=== PATIENT | female | born 1955 | race Caucasian/White ===

== ENCOUNTER → 2016-11-20 16:36 | Outpatient (CLI) | payer BC ==
[2016-11-16 10:46] VITALS: BMI 20.9
[~2016-11-20 16:36] MED LIST: ACYCLOVIR; ANTIDEPRESSANT PO; APAP PO; BUTALB PO; CARAFATE1 G PO; CELEXA20 MG PO; CLEOCIN HCL300 MG PO; DICLOFENAC SODI50 MG PO; FIORICET PO; FIORICET/ESGIC1 TAB PO; LEVAQUIN500 MG PO; MUCINEX600 MG PO; NIFEREX-150 CAP1 CA3 PO; NORCO 5/325 TAB1 TA1 PO; OMEPRAZOLE20 M1 PO; PRILOSEC20 MG PO; PROPRANOLOL HCL60 M1 PO; SEROQUEL200 MG PO; SINGULAIR10 MG PO; SOMA350 MG; SOMA350 MG PO; SYNTHROID; SYNTHROID25 MCG PO; TESSALON PERLE100 MG PO; XANAX0.25 MG PO; ZOVIRAX400 MG PO
[2016-11-20 17:14] LABS: BASOPHILS 0 % (0.0-2.0); HEMATOCRIT 32.7 % (36.0-48.0); HEMOGLOBIN 10.9 g/dL (12-16); IMMATURE GRANULOCYTES 0.4 % (0-5); LYMPHOCYTES 24.2 % (15-50); MCH 30.7 pg (26.0-34.0); MCHC 33.3 g/dL (31.0-37.0); MCV 92.1 fL (80.0-100.0); MEAN PLATELET VOLUME 9.9 fL (7.4-10.4); MONOCYTES 13.6 % (2-11); NEUTROPHILS 57.8 % (40-80); PLATELET COUNT 206 10x3/uL (130-400); RBC 3.55 10x6/uL (4.00-5.40); RDW 12.7 % (11.5-14.5); WBC 4.5 10x3/uL (4.8-10.8)
[2016-11-20 17:19] LABS: C-REACTIVE PROTEIN 5.9 mg/dL (0.0-0.9); CREATININE - SERUM 0.6 mg/dL (0.6-1.3)
[2016-11-20 18:19] LABS: ERYTHROCYTE SEDIMENTATION RATE 19 mm/hr (0-30)
== END | disposition home or self-care (01) ==
LOC: D.LABREF 16:36
PROVIDERS: Student in an Organized Health Care Education/Training Program
DX: Z79.2 Long term (current) use of antibiotics (principal); M86.60 Other chronic osteomyelitis, unspecified site; Z51.81 Encounter for therapeutic drug level monitoring

== ENCOUNTER → 2016-11-27 15:07 | Outpatient (CLI) | payer BC ==
[2016-11-16 10:46] VITALS: BMI 20.9
[2016-11-27 15:29] LABS: BASOPHILS 0 % (0.0-2.0); EOSINOPHILS 6.5 % (0-7); HEMATOCRIT 31.6 % (36.0-48.0); HEMOGLOBIN 10.6 g/dL (12-16); IMMATURE GRANULOCYTES 0.7 % (0-5); LYMPHOCYTES 26.4 % (15-50); MCH 30.5 pg (26.0-34.0); MCHC 33.5 g/dL (31.0-37.0); MCV 91.1 fL (80.0-100.0); MEAN PLATELET VOLUME 9.1 fL (7.4-10.4); NEUTROPHILS 56.4 % (40-80); RBC 3.47 10x6/uL (4.00-5.40); RDW 12.7 % (11.5-14.5); WBC 8.4 10x3/uL (4.8-10.8)
[2016-11-27 15:40] LABS: C-REACTIVE PROTEIN 1.4 mg/dL (0.0-0.9); CREATININE - SERUM 0.7 mg/dL (0.6-1.3)
[2016-11-27 15:47] LABS: PLATELET COUNT 421 10x3/uL (130-400)
[2016-11-27 16:31] LABS: ERYTHROCYTE SEDIMENTATION RATE 20 mm/hr (0-30)
== END | disposition home or self-care (01) ==
LOC: D.LABREF 15:07
PROVIDERS: Student in an Organized Health Care Education/Training Program
DX: M86.9 Osteomyelitis, unspecified (principal)

== ENCOUNTER → 2016-12-04 15:06 | Outpatient (CLI) | payer BC ==
[2016-11-16 10:46] VITALS: BMI 20.9
[2016-12-04 19:50] LABS: BASOPHILS 0 % (0.0-2.0); EOSINOPHILS 4.6 % (0-7); HEMATOCRIT 31.5 % (36.0-48.0); HEMOGLOBIN 10.4 g/dL (12-16); IMMATURE GRANULOCYTES 0.1 % (0-5); LYMPHOCYTES 15.7 % (15-50); MCH 30.1 pg (26.0-34.0); MCV 91.3 fL (80.0-100.0); MEAN PLATELET VOLUME 9.5 fL (7.4-10.4); MONOCYTES 9.9 % (2-11); NEUTROPHILS 69.7 % (40-80); PLATELET COUNT 379 10x3/uL (130-400); RBC 3.45 10x6/uL (4.00-5.40); RDW 12.9 % (11.5-14.5); WBC 8.4 10x3/uL (4.8-10.8)
[2016-12-04 19:56] LABS: C-REACTIVE PROTEIN 1.4 mg/dL (0.0-0.9); CREATININE - SERUM 0.7 mg/dL (0.6-1.3)
[2016-12-04 21:00] LABS: ERYTHROCYTE SEDIMENTATION RATE 16 mm/hr (0-30)
== END | disposition home or self-care (01) ==
LOC: D.LABREF 15:06
PROVIDERS: Student in an Organized Health Care Education/Training Program
DX: Z79.2 Long term (current) use of antibiotics (principal); Z51.81 Encounter for therapeutic drug level monitoring; M86.60 Other chronic osteomyelitis, unspecified site

== ENCOUNTER → 2016-12-11 15:54 | Outpatient (CLI) | payer BC ==
[2016-11-16 10:46] VITALS: BMI 20.9
[2016-12-11 16:33] LABS: BASOPHILS 0 % (0.0-2.0); EOSINOPHILS 5.3 % (0-7); HEMATOCRIT 31.9 % (36.0-48.0); HEMOGLOBIN 10.5 g/dL (12-16); IMMATURE GRANULOCYTES 0.1 % (0-5); LYMPHOCYTES 23.9 % (15-50); MCH 30.2 pg (26.0-34.0); MCHC 32.9 g/dL (31.0-37.0); MCV 91.7 fL (80.0-100.0); MEAN PLATELET VOLUME 9.4 fL (7.4-10.4); MONOCYTES 9.2 % (2-11); NEUTROPHILS 61.5 % (40-80); PLATELET COUNT 356 10x3/uL (130-400); RBC 3.48 10x6/uL (4.00-5.40); RDW 12.9 % (11.5-14.5); WBC 7.9 10x3/uL (4.8-10.8)
[2016-12-11 16:49] LABS: C-REACTIVE PROTEIN 2.1 mg/dL (0.0-0.9); CREATININE - SERUM 0.6 mg/dL (0.6-1.3)
[2016-12-11 18:17] LABS: ERYTHROCYTE SEDIMENTATION RATE 13 mm/hr (0-30)
== END | disposition home or self-care (01) ==
LOC: D.LABREF 15:54
PROVIDERS: Student in an Organized Health Care Education/Training Program
DX: M46.22 Osteomyelitis of vertebra, cervical region (principal)

== ENCOUNTER → 2016-12-18 16:44 | Outpatient (CLI) | payer BC ==
[2016-11-16 10:46] VITALS: BMI 20.9
[2016-12-18 17:48] LABS: BASOPHILS 0.1 % (0.0-2.0); EOSINOPHILS 6.5 % (0-7); HEMATOCRIT 33.5 % (36.0-48.0); HEMOGLOBIN 11.1 g/dL (12-16); IMMATURE GRANULOCYTES 0.3 % (0-5); LYMPHOCYTES 23.5 % (15-50); MCH 30.1 pg (26.0-34.0); MCHC 33.1 g/dL (31.0-37.0); MCV 90.8 fL (80.0-100.0); MEAN PLATELET VOLUME 9.5 fL (7.4-10.4); NEUTROPHILS 51.6 % (40-80); PLATELET COUNT 399 10x3/uL (130-400); RBC 3.69 10x6/uL (4.00-5.40); RDW 12.7 % (11.5-14.5); WBC 7.9 10x3/uL (4.8-10.8)
[2016-12-18 18:12] LABS: C-REACTIVE PROTEIN 0.3 mg/dL (0.0-0.9); CREATININE - SERUM 0.6 mg/dL (0.6-1.3)
[2016-12-18 18:57] LABS: ERYTHROCYTE SEDIMENTATION RATE 10 mm/hr (0-30)
== END | disposition home or self-care (01) ==
LOC: D.LABREF 16:44
PROVIDERS: Student in an Organized Health Care Education/Training Program
DX: Z51.81 Encounter for therapeutic drug level monitoring (principal); Z79.2 Long term (current) use of antibiotics; M86.9 Osteomyelitis, unspecified

== ENCOUNTER → 2016-12-25 14:20 | Outpatient (CLI) | payer BC ==
[2016-11-16 10:46] VITALS: BMI 20.9
[2016-12-25 14:32] LABS: BASOPHILS 0.1 % (0.0-2.0); EOSINOPHILS 7.2 % (0-7); HEMATOCRIT 32.1 % (36.0-48.0); HEMOGLOBIN 10.4 g/dL (12-16); IMMATURE GRANULOCYTES 0.2 % (0-5); LYMPHOCYTES 23.2 % (15-50); MCH 29.5 pg (26.0-34.0); MCHC 32.4 g/dL (31.0-37.0); MCV 91.2 fL (80.0-100.0); MEAN PLATELET VOLUME 9.4 fL (7.4-10.4); MONOCYTES 9.9 % (2-11); NEUTROPHILS 59.4 % (40-80); PLATELET COUNT 386 10x3/uL (130-400); RBC 3.52 10x6/uL (4.00-5.40); RDW 12.9 % (11.5-14.5); WBC 8.5 10x3/uL (4.8-10.8)
[2016-12-25 14:49] LABS: C-REACTIVE PROTEIN < 0.2 mg/dL (0.0-0.9); CREATININE - SERUM 0.7 mg/dL (0.6-1.3); UREA NITROGEN 14 mg/dL (7-18)
[2016-12-25 15:46] LABS: ERYTHROCYTE SEDIMENTATION RATE 8 mm/hr (0-30)
== END | disposition home or self-care (01) ==
LOC: D.LABREF 14:20
PROVIDERS: Student in an Organized Health Care Education/Training Program
DX: Z51.81 Encounter for therapeutic drug level monitoring (principal); Z79.2 Long term (current) use of antibiotics

== ENCOUNTER → 2017-03-06 12:53 | Outpatient (CLI) | payer BC ==
[2016-11-16 10:46] VITALS: BMI 20.9
== END | disposition home or self-care (01) ==
LOC: D.MRI 02-26 11:00
DX: M86.60 Other chronic osteomyelitis, unspecified site (principal)

== ENCOUNTER → 2017-05-10 12:32 | Outpatient (CLI) | payer BC ==
[2017-05-10 13:29] VITALS: BP 152/83; Ht 139.7 cm
== END | disposition home or self-care (01) ==
LOC: D.OPS 12:32
DX: M81.0 Age-related osteoporosis without current pathological fracture (principal)

== ENCOUNTER → 2017-06-11 16:46 | Outpatient (CLI) | payer BC | END | disposition home or self-care (01) | LOC: D.MAMMO 11:30 | DX: Z12.31 Encounter for screening mammogram for malignant neoplasm of breast (principal) ==

== ENCOUNTER → 2017-06-21 06:22 | Outpatient (CLI) | payer BC | END | disposition home or self-care (01) | LOC: D.NM 06:22 | DX: M86.60 Other chronic osteomyelitis, unspecified site (principal) ==

== ENCOUNTER → 2017-07-10 16:53 | Outpatient (CLI) | payer BC | END | disposition home or self-care (01) | LOC: D.MAMMO 10:00 | DX: R92.8 Other abnormal and inconclusive findings on diagnostic imaging of breast (principal) ==

== ENCOUNTER → 2017-07-12 10:06 | Outpatient (CLI) | payer BC | END | disposition home or self-care (01) | LOC: D.CT 10:06 | DX: M86.60 Other chronic osteomyelitis, unspecified site (principal) ==

== ENCOUNTER 2017-08-07 06:57 | Outpatient (CLI) | payer BC ==
[~2017-08-07] VITALS: Ht 139.7 cm; Wt 40.9 kg
[2017-08-07 07:45] LABS: BASOPHILS 0.3 % (0-2); CALC OSMOLALITY 278 mosm/kg (275-300); CALCIUM 9.4 mg/dL (8.5-10.1); CARBON DIOXIDE 27.8 mmol/L (21.0-32.0); CHLORIDE - SERUM 108 mmol/L (98-107); CREATININE - SERUM 0.7 mg/dL (0.6-1.3); EOSINOPHILS 2.4 % (0-7); GLUCOSE 96 mg/dL (74-106); HEMATOCRIT 31.4 % (36.0-48.0); HEMOGLOBIN 10.4 g/dL (12-16); IMMATURE GRANULOCYTES 0.4 % (0-5); LYMPHOCYTES 15.9 % (15-50); MCH 30.9 pg (26.0-34.0); MCHC 33.1 g/dL (31.0-37.0); MCV 93.2 fL (80.0-100.0); MEAN PLATELET VOLUME 10.1 fL (7.4-10.4); MONOCYTES 9.8 % (2-11); NEUTROPHILS 71.2 % (40-80); PLATELET COUNT 385 10x3/uL (130-400); RBC 3.37 10x6/uL (4.00-5.40); SODIUM 141 mmol/L (136-145); UREA NITROGEN 7 mg/dL (7-18); WBC 10.1 10x3/uL (4.8-10.8); eGFR NON AFRICAN AMERICAN 90 mL/min (90-120)
[2017-08-07 07:50] VITALS: BP 140/78; Ht 139.7 cm; Wt 40.9 kg
[2017-08-07] MEDS ORDERED: GABAPENTIN100 MG PO (07:54)
[2017-08-07 07:57] LABS: APTT 26.2 SECONDS (22.8-39.4); INR 0.93 (0.85-1.17); PROTIME 12.3 SECONDS (11.6-15.0)
--- NOTE | 2017-08-07 11:05 | NUR ---
VS TAKEN AND PLACED ON POST OP SHEET
--- NOTE | 2017-08-07 14:20 | NUR ---
1400 IV DC WITH CATHER TIP INTACT 1415 CVOR NURSE HERE TO TALK WITH PATIENT
[2017-08-08 20:10] LABS: ACID FAST SMEAR Negative (()); AFB SPECIMEN PROCESSING Tissue Grinding (())
[2017-08-10 13:17] LABS: FUNGUS STAIN Final report (())
== END 2017-08-07 14:23 | disposition home or self-care (01) ==
LOC: D.OPS 06:57 → D.CT 09:00 → D.OPS 14:23
PROVIDERS: Radiology Diagnostic Radiology; Student in an Organized Health Care Education/Training Program
DX: M46.22 Osteomyelitis of vertebra, cervical region (principal); E78.5 Hyperlipidemia, unspecified; K21.9 Gastro-esophageal reflux disease without esophagitis; R63.4 Abnormal weight loss; D64.9 Anemia, unspecified; E03.9 Hypothyroidism, unspecified; Z01.812 Encounter for preprocedural laboratory examination

== ENCOUNTER → 2017-09-11 11:59 | Outpatient (CLI) | payer BC ==
[2017-08-07 07:50] VITALS: BMI 20.9
[~2017-09-11 11:59] MED LIST changes: +NEURONTIN 300300 MG PO; +PENICILLIN V PO; +SEROQUEL100 MG PO; -SEROQUEL200 MG PO
[2017-09-11 18:13] LABS: BASOPHILS 0.3 % (0-2); HEMOGLOBIN 11.3 g/dL (12-16); IMMATURE GRANULOCYTES 0.3 % (0-5); LYMPHOCYTES 19.2 % (15-50); MCH 30.3 pg (26.0-34.0); MCHC 32.3 g/dL (31.0-37.0); MCV 93.8 fL (80.0-100.0); MEAN PLATELET VOLUME 10.3 fL (7.4-10.4); MONOCYTES 12.2 % (2-11); PLATELET COUNT 439 10x3/uL (130-400); RBC 3.73 10x6/uL (4.00-5.40); RDW 13.8 % (11.5-14.5); WBC 11.2 10x3/uL (4.8-10.8)
[2017-09-11 18:27] LABS: C-REACTIVE PROTEIN 5.1 mg/dL (0.0-0.9); CREATININE - SERUM 0.8 mg/dL (0.6-1.3)
[2017-09-11 18:57] LABS: ERYTHROCYTE SEDIMENTATION RATE 15 mm/hr (0-30)
== END | disposition home or self-care (01) ==
LOC: D.LABREF 11:59
PROVIDERS: Student in an Organized Health Care Education/Training Program
DX: M86.60 Other chronic osteomyelitis, unspecified site (principal); Z51.81 Encounter for therapeutic drug level monitoring; Z79.2 Long term (current) use of antibiotics

== ENCOUNTER 2017-11-15 13:05 | Outpatient (CLI) | payer BC ==
[~2017-11-15] VITALS: Ht 139.7 cm; Wt 40.9 kg
[~2017-11-15 13:05] MED LIST changes: -PENICILLIN V PO
[2017-11-15 14:28] VITALS: BP 131/81; Ht 139.7 cm; Wt 40.9 kg
[2017-11-15] MEDS ORDERED: PENICILLIN V PO (14:32)
== END 2017-11-15 14:40 | disposition home or self-care (01) ==
LOC: D.OPS 13:05
DX: M81.0 Age-related osteoporosis without current pathological fracture (principal)

== ENCOUNTER → 2017-12-14 10:00 | Outpatient (CLI) | payer BC ==
[2017-11-15 14:28] VITALS: BMI 20.9
[~2017-12-14 10:00] MED LIST changes: +PENICILLIN V PO
[2017-12-14 16:16] LABS: BASOPHILS 0.3 % (0-2); EOSINOPHILS 2.2 % (0-7); HEMATOCRIT 30.5 % (36.0-48.0); HEMOGLOBIN 9.8 g/dL (12-16); IMMATURE GRANULOCYTES 0.5 % (0-5); LYMPHOCYTES 18.6 % (15-50); MCH 29.5 pg (26.0-34.0); MCHC 32.1 g/dL (31.0-37.0); MCV 91.9 fL (80.0-100.0); MEAN PLATELET VOLUME 9.2 fL (7.4-10.4); MONOCYTES 13.4 % (2-11); RBC 3.32 10x6/uL (4.00-5.40); RDW 15.2 % (11.5-14.5); WBC 12.8 10x3/uL (4.8-10.8)
[2017-12-14 16:18] LABS: PLATELET COUNT 554 10x3/uL (130-400)
[2017-12-14 16:36] LABS: C-REACTIVE PROTEIN 9.6 mg/dL (0.0-0.9); CREATININE - SERUM 0.6 mg/dL (0.6-1.3)
[2017-12-14 18:13] LABS: ERYTHROCYTE SEDIMENTATION RATE 7 mm/hr (0-30)
== END | disposition home or self-care (01) ==
LOC: D.RAD 10:00
PROVIDERS: Student in an Organized Health Care Education/Training Program
DX: R07.9 Chest pain, unspecified (principal); M86.9 Osteomyelitis, unspecified; Z51.81 Encounter for therapeutic drug level monitoring; Z79.2 Long term (current) use of antibiotics

== ENCOUNTER → 2018-01-21 07:51 | Outpatient (CLI) | payer MEDICARE, OTHER ==
[2017-11-15 14:28] VITALS: BMI 20.9
== END | disposition home or self-care (01) ==
LOC: D.RT 01-11 11:00
DX: J45.909 Unspecified asthma, uncomplicated (principal)

== ENCOUNTER → 2018-06-12 13:12 | Outpatient (CLI) | payer MEDICARE, OTHER ==
[~2018-06-12] VITALS: Ht 139.7 cm; Wt 40.9 kg
[2018-06-12 14:07] VITALS: BP 133/79; Ht 139.7 cm; Wt 40.9 kg
== END | disposition home or self-care (01) ==
LOC: D.OPS 13:12
DX: M81.0 Age-related osteoporosis without current pathological fracture (principal)

== ENCOUNTER → 2018-09-04 14:33 | Outpatient (CLI) | payer MEDICARE, OTHER ==
[2018-06-12 14:07] VITALS: BMI 20.9
== END | disposition home or self-care (01) ==
LOC: D.RAD 13:45
DX: J18.9 Pneumonia, unspecified organism (principal)

== ENCOUNTER → 2018-09-13 15:49 | Outpatient (CLI) | payer MEDICARE, OTHER ==
[2018-06-12 14:07] VITALS: BMI 20.9
[2018-09-13 16:14] LABS: BASOPHILS 0.4 % (0-2); EOSINOPHILS 1.6 % (0-7); HEMATOCRIT 32.4 % (36.0-48.0); HEMOGLOBIN 10.3 g/dL (12-16); LYMPHOCYTES 14.1 % (15-50); MCH 27.2 pg (26.0-34.0); MCHC 31.8 g/dL (31.0-37.0); MCV 85.7 fL (80.0-100.0); MEAN PLATELET VOLUME 8.6 fL (7.4-10.4); MONOCYTES 10.3 % (2-11); NEUTROPHILS 72.6 % (40-80); RBC 3.78 10x6/uL (4.00-5.40); RDW 17.7 % (11.5-14.5); WBC 15.9 10x3/uL (4.8-10.8)
[2018-09-13 16:17] LABS: PLATELET COUNT 869 10x3/uL (130-400)
[2018-09-13 16:29] LABS: CREATININE - SERUM 0.7 mg/dL (0.6-1.3)
== END | disposition home or self-care (01) ==
LOC: D.LABREF 15:49
PROVIDERS: Student in an Organized Health Care Education/Training Program
DX: Z51.81 Encounter for therapeutic drug level monitoring (principal); Z79.2 Long term (current) use of antibiotics

== ENCOUNTER 2019-01-15 09:18 | Outpatient (CLI) | payer MEDICARE, BC ==
[~2019-01-15] VITALS: Ht 139.7 cm; Wt 40.9 kg
[2019-01-15 09:50] VITALS: Ht 139.7 cm; Wt 40.9 kg
== END 2019-01-15 10:02 | disposition home or self-care (01) ==
LOC: D.OPS 09:18
PROVIDERS: ATTEND Family Medicine
DX: M18.0 Bilateral primary osteoarthritis of first carpometacarpal joints (principal)

== ENCOUNTER → 2019-01-16 10:17 | Outpatient (CLI) | payer MEDICARE, BC ==
[2019-01-15 09:50] VITALS: BMI 20.9
== END | disposition home or self-care (01) ==
LOC: D.RAD 10:17 → D.RT 11:00
PROVIDERS: ATTEND Internal Medicine Pulmonary Disease
DX: J45.909 Unspecified asthma, uncomplicated (principal)

== ENCOUNTER → 2019-03-14 14:39 | Outpatient (CLI) | payer MEDICARE, BC ==
[2019-03-14 16:03] LABS: BASOPHILS 0.3 % (0-2); EOSINOPHILS 1.9 % (0-7); HEMATOCRIT 29.2 % (36.0-48.0); HEMOGLOBIN 9.4 g/dL (12-16); IMMATURE GRANULOCYTES 0.3 % (0-5); LYMPHOCYTES 16.1 % (15-50); MCH 28.2 pg (26.0-34.0); MCHC 32.2 g/dL (31.0-37.0); MCV 87.7 fL (80.0-100.0); MEAN PLATELET VOLUME 8.9 fL (7.4-10.4); MONOCYTES 12.5 % (2-11); NEUTROPHILS 68.9 % (40-80); RBC 3.33 10x6/uL (4.00-5.40); RDW 16.6 % (11.5-14.5)
[2019-03-14 16:04] LABS: CREATININE - SERUM 0.5 mg/dL (0.6-1.3); PLATELET COUNT 614 10x3/uL (130-400)
== END | disposition home or self-care (01) ==
LOC: D.LABREF 14:39
PROVIDERS: Student in an Organized Health Care Education/Training Program
DX: Z79.2 Long term (current) use of antibiotics (principal)

== ENCOUNTER 2019-04-03 13:14 | Outpatient (CLI) | payer MEDICARE, BC ==
[2019-01-15 09:50] VITALS: BMI 20.9
== END 2019-04-03 23:59 ==
LOC: D.MAMMO 13:14
PROVIDERS: ATTEND Family Medicine
DX: Z12.31 Encounter for screening mammogram for malignant neoplasm of breast (principal)

== ENCOUNTER 2019-04-17 01:00 | Emergency (ER) | payer MEDICARE, BC ==
[~2019-04-17] VITALS: Ht 139.7 cm; Wt 40.9 kg
[2019-04-17 01:04] VITALS: Ht 139.7 cm; Wt 40.9 kg
[2019-04-17 03:41] VITALS: BP 126/73
== END 2019-04-17 03:41 | disposition home or self-care (01) ==
LOC: D.ER 01:00
DX: S01.81XA Laceration without foreign body of other part of head, initial encounter (principal); W18.30XA Fall on same level, unspecified, initial encounter; Y93.89 Activity, other specified; Y92.89 Other specified places as the place of occurrence of the external cause

== ENCOUNTER 2019-07-16 09:06 | Outpatient (CLI) | payer MEDICARE, BC ==
[~2019-07-16] VITALS: Ht 139.7 cm; Wt 40.9 kg
[2019-07-16 09:28] VITALS: BP 136/74; Ht 139.7 cm; Wt 40.9 kg
== END 2019-07-16 09:33 | disposition home or self-care (01) ==
LOC: D.OPS 09:06
PROVIDERS: ATTEND Internal Medicine Pulmonary Disease
DX: M18.0 Bilateral primary osteoarthritis of first carpometacarpal joints (principal)

== ENCOUNTER → 2019-08-11 09:51 | Outpatient (CLI) | payer MEDICARE, BC ==
[2019-07-16 09:28] VITALS: BMI 20.9
== END | disposition home or self-care (01) ==
LOC: D.OPS 07-16 13:00 → D.RT 09:51
PROVIDERS: ATTEND Internal Medicine Pulmonary Disease
DX: J45.909 Unspecified asthma, uncomplicated (principal)

== ENCOUNTER 2020-01-20 12:03 | Outpatient (CLI) | payer MEDICARE, BC ==
[~2020-01-20] VITALS: Ht 139.7 cm; Wt 40.9 kg
[2020-01-20 12:37] VITALS: BP 113/62; Ht 139.7 cm; Wt 40.9 kg
--- NOTE | 2020-01-20 12:49 | NUR ---
PT TOLERATED INJECTION WELL.
== END 2020-01-20 12:48 | disposition home or self-care (01) ==
LOC: D.OPS 12:03
PROVIDERS: ATTEND Family Medicine
DX: M81.0 Age-related osteoporosis without current pathological fracture (principal)

== ENCOUNTER 2020-07-28 11:37 | Outpatient (CLI) | payer MEDICARE, BC ==
[~2020-07-28] VITALS: Ht 139.7 cm; Wt 40.9 kg
[2020-07-28 11:51] VITALS: BP 127/74; Ht 139.7 cm; Wt 40.9 kg
== END 2020-07-28 12:12 | disposition home or self-care (01) ==
LOC: D.OPS 11:37
PROVIDERS: ATTEND Family Medicine
DX: M81.0 Age-related osteoporosis without current pathological fracture (principal)

== ENCOUNTER 2021-02-03 14:10 | Outpatient (CLI) | payer MEDICARE, BC ==
[~2021-02-03] VITALS: Ht 139.7 cm; Wt 42.3 kg
[2021-02-03 15:05] VITALS: BP 120/75; Ht 139.7 cm; Wt 42.3 kg
== END 2021-02-03 14:55 ==
LOC: D.OPS 14:10
PROVIDERS: ATTEND Family Medicine
DX: M81.0 Age-related osteoporosis without current pathological fracture (principal)